=== PATIENT | female | born 1975 | race Hispanic/Latino ===

== ENCOUNTER 2022-07-23 18:24 | Emergency (ER) | payer SELFPAY ==
--- OUTSIDE RECORDS SUMMARY | 2022-07-23 18:29 | XMS REPORT | Continuity of Care Document ---
:1975 Author Organization [facility] t Address [address] [place] [address] Care Team Providers Name Role Phone Unavailable Unavailable Unavailable Problems This patient has no known problems. Allergies, Adverse Reactions, Alerts This patient has no known allergies or adverse reactions. Medications This patient has no known medications. Procedures This patient has no known procedures. Encounters Start End Encounter Admission Attending Care Care Encounter Source Date/Time Date/Time Type Type Clinicians Facility Department ID 2022-07-22 2022-07-22 Outpatient [facility] [id number] Zeb 08:48:28 08:48:28 [id number] F Christiano 2022-04-30 2022-04-30 Outpatient [facility] [id number] Zeb 11:07:12 11:07:12 [id number] F Christiano Results This patient has no known results.
--- NOTE | 2022-07-23 19:19 | EDPHYS ---
Physician Documentation [facility] Name: Thelma Zaldivar Age: 46 yrs Sex: Female : 1975 Arrival Date: 07/23/2022 Time: 18:26 Bed 18 Private MD: ED Physician Vahid Ley HPI: 07/23 19:20 This 46 yrs old Female presents to ER via Ambulatory with complaints of Arm snw Pain - right. 19:20 The patient or guardian complains of decreased range of motion, pain. The complaints snw affect the anterior aspect of right shoulder and posterior aspect of right shoulder. Onset: The symptoms/episode began/occurred acutely, 3 month(s) ago, and became persistent. Associated signs and symptoms: The patient has no apparent associated signs or symptoms. Severity of symptoms: At their worst the symptoms were moderate. It is unknown whether or not the patient has had similar symptoms in the past. 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 - Social history:: Smoking status: Patient denies any tobacco usage or history of. ROS: 19:21 Constitutional: Negative for fever, chills, and weight loss, Eyes: Negative for injury, snw pain, redness, and discharge, ENT: Negative for injury, pain, and discharge, Neck: Negative for injury, pain, and swelling, Cardiovascular: Negative for chest pain, palpitations, and edema, Respiratory: Negative for shortness of breath, cough, wheezing, and pleuritic chest pain, Abdomen/GI: Negative for abdominal pain, nausea, vomiting, diarrhea, and constipation, Back: Negative for injury and pain, : Negative for injury, bleeding, discharge, and swelling, Skin: Negative for injury, rash, and discoloration, Neuro: Negative for headache, weakness, numbness, tingling, and seizure, Psych: Negative for depression, anxiety, suicide ideation, homicidal ideation, and hallucinations. 19:21 MS/extremity: Positive for injury or acute deformity, decreased range of motion, pain, of the posterior aspect of right shoulder and anterior aspect of right shoulder. Exam: 19:21 Constitutional: This is a well developed, well nourished patient who is awake, alert, snw and in no acute distress. Head/Face: Normocephalic, atraumatic. 19:21 Chest/axilla: Normal chest wall appearance and motion. Nontender with no deformity. No lesions are appreciated. Cardiovascular: Regular rate and rhythm with a normal S1 and S2. No gallops, murmurs, or rubs. Normal PMI, no JVD. No pulse deficits. Respiratory: Lungs have equal breath sounds bilaterally, clear to auscultation and percussion. No rales, rhonchi or wheezes noted. No increased work of breathing, no retractions or nasal flaring. Abdomen/GI: Soft, non-tender, with normal bowel sounds. No distension or tympany. No guarding or rebound. No evidence of tenderness throughout. Back: No spinal tenderness. No costovertebral tenderness. Full range of motion. Skin: Warm, dry with normal turgor. Normal color with no rashes, no lesions, and no evidence of cellulitis. Neuro: Awake and alert, GCS 15, oriented to person, place, time, and situation. Cranial nerves II-XII grossly intact. Motor strength 5/5 in all extremities. Sensory grossly intact. Cerebellar exam normal. Normal gait. Psych: Awake, alert, with orientation to person, place and time. Behavior, mood, and affect are within normal limits. 19:21 Neck: External neck: tenderness, that is moderate, right lateral neck. 19:21 Musculoskeletal/extremity: Extremities: grossly normal except: noted in the posterior aspect of right shoulder and anterior aspect of right shoulder: decreased ROM, tenderness. Vital Signs: 18:42 BP 119 / 56; Pulse 84; Resp 18; Temp 98.4; Pulse Ox 99% on R/A; Weight 73.03 kg (R); mb9 Height 5 ft. 2 in. (157.48 cm); Pain 8/10; 19:36 BP 120 / 44; Pulse 78; Resp 19; Pulse Ox 99% on R/A; aa9 18:42 Body Mass Index 29.45 (73.03 kg, 157.48 cm) mb9 MDM: 18:58 Patient medically screened. snw 19:19 Data reviewed: vital signs, nurses notes. I considered the following discharge snw prescriptions or medication management in the emergency department pt has high dose ibuprofen, prednisone, and flexeril with her and will continue to take these.. Historians other than the Patient: Daughter/Son: Son. Counseling: I had a detailed discussion with the patient and/or guardian regarding: the historical points, exam findings, and any diagnostic results supporting the discharge/admit diagnosis, the need for outpatient follow up, for definitive care, to return to the emergency department if symptoms worsen or persist or if there are any questions or concerns that arise at home. Special discussion: Based on the history and exam findings, there is no indication for further emergent testing or inpatient evaluation. I discussed with the patient/guardian the need to see the orthopedic surgeon for further evaluation of the symptoms. I discussed with the patient/guardian the need to see the primary care provider for further evaluation of the symptoms. 07/23 19:18 Order name: Sling; Complete Time: 19:35 snw Administered Medications: 19:35 Drug: HYDROcodone-acetaminophen 5 mg-325 mg 1 tabs Route: PO; aa9 19:36 Follow up: Response: No adverse reaction aa9 Disposition: 07/24 07:45 Co-signature as Attending Physician, Vahid Ley MD I reviewed the patient's care rt provided by the Advanced Practice Provider and agree with the diagnosis and treatment plan. Disposition Summary: 07/23/22 19:19 Discharge Ordered Location: Home snw Condition: Stable snw Diagnosis - Pain in right shoulder snw Followup: snw - With: Emergency Department - When: As needed - Reason: Worsening of condition Followup: snw - With: Private Physician - When: 5 - 6 days - Reason: Recheck today's complaints, Continuance of care, Re-evaluation by your physician Discharge Instructions: - Discharge Summary Sheet snw - Joint Pain snw - Shoulder Pain snw - How to Use Cold Therapy, [id number] snw - Shoulder Range of Motion Exercises snw - How to Use a Sling snw Forms: - Medication Reconciliation Form snw - Thank You Letter snw - Antibiotic Education snw - Prescription Opioid Use snw Signatures: Jeannie Curry FNP-C SUPERVISOR PROP MAKING-Csnw Karolina Thayer RN RN aa9 Leta Garcia, ARCADIO RN mb9 Vahid Ley MD MD rt
--- NOTE | 2022-07-23 19:19 | ER ---
Nurse's Notes [facility] Name: Thelma Zaldivar Age: 46 yrs Sex: Female : 1975 Arrival Date: 07/23/2022 Time: 18:26 Bed 18 Private MD: Diagnosis: Pain in right shoulder Presentation: 07/23 18:42 Chief complaint: Patient states: "I started having right arm pain 3 months ago after mb9 picking up something heavy". Coronavirus screen: Vaccine status: Patient reports being unvaccinated. Ebola Screen: No symptoms or risks identified at this time. Initial Sepsis Screen: Does the patient meet any 2 criteria? No. Patient's initial sepsis screen is negative. Does the patient have a suspected source of infection? No. Patient's initial sepsis screen is negative. Risk Assessment: Do you want to hurt yourself or someone else? Patient reports no desire to harm self or others. Onset of symptoms was April 18, 2022. 18:42 Method Of Arrival: Ambulatory mb9 18:42 Acuity: CHI 4 mb9 Triage Assessment: 18:48 General: Appears in no apparent distress. comfortable, Behavior is calm, cooperative, mb9 appropriate for age. Pain: Complains of pain in right arm Pain radiates to right shoulder. Pain: Pain currently is 8 out of 10 on a pain scale. Quality of pain is described as sharp, shooting, Aggravated by increased activity. Neuro: Guerin Agitation-Sedation Scale (RASS): 0 - Alert and Calm Level of Consciousness is awake, alert, obeys commands. Cardiovascular: Capillary refill < 3 seconds is brisk Patient's skin is warm and dry. Respiratory: Airway is patent Respiratory effort is even, unlabored, Respiratory pattern is regular, symmetrical. Derm: Skin is pink, warm \\T\\ dry. Musculoskeletal: Range of motion: intact in all extremities, Reports pain in right arm since 3 months ago. 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 - Social history:: Smoking status: Patient denies any tobacco usage or history of. Screenin:50 [facility] ED Fall Risk Assessment (Adult) History of falling in the last 3 months, mb9 including since admission No falls in past 3 months (0 pts) Confusion or Disorientation No (0 pts) Intoxicated or Sedated No (0 pts) Impaired Gait No (0 pts) Mobility Assist Device Used No (0 pt) Altered Elimination No (0 pt) Score/Fall Risk Level 0 - 2 = Low Risk Oriented to surroundings, Maintained a safe environment. Abuse screen: Denies threats or abuse. Nutritional screening: No deficits noted. Tuberculosis screening: No symptoms or risk factors identified. Assessment: 19:35 General: Appears in no apparent distress. comfortable, Behavior is calm, cooperative, aa9 appropriate for age. Pain: Complains of pain in right arm Pain currently is 7 out of 10 on a pain scale. Aggravated by increased activity, weight bearing. Neuro: Level of Consciousness is awake, alert, obeys commands, Oriented to person, place, time, situation. Cardiovascular: Patient's skin is warm and dry. Respiratory: Airway is patent Respiratory effort is even, unlabored. Derm: Skin is intact, is healthy with good turgor. Musculoskeletal: Range of motion: intact in all extremities. Vital Signs: 18:42 BP 119 / 56; Pulse 84; Resp 18; Temp 98.4; Pulse Ox 99% on R/A; Weight 73.03 kg (R); mb9 Height 5 ft. 2 in. (157.48 cm); Pain 8/10; 19:36 BP 120 / 44; Pulse 78; Resp 19; Pulse Ox 99% on R/A; aa9 18:42 Body Mass Index 29.45 (73.03 kg, 157.48 cm) mb9 ED Course: 18:26 Patient arrived in ED. am2 18:38 Jeannie Curry [facility]NP-C [facility] snw 18:38 Vahid Ley MD is Attending Physician. snw 18:45 Triage completed. mb9 18:45 Arm band placed on. mb9 18:49 Gunjan Leyva, ARCADIO is Primary Nurse. ll1 18:49 Patient placed in an exam room, on a stretcher. ll1 18:49 Bed in low position. Call light in reach. Side rails up X 1. Client placed on mb9 continuous cardiac and pulse oximetry monitoring. NIBP monitoring applied. supervisor wet room on. Door closed. Noise minimized. Warm blanket given. 19:01 No provider procedures requiring assistance completed. mb9 Administered Medications: 19:35 Drug: HYDROcodone-acetaminophen 5 mg-325 mg 1 tabs Route: PO; aa9 19:36 Follow up: Response: No adverse reaction aa9 Medication: 19:01 VIS not applicable for this client. mb9 Outcome: 19:19 Discharge ordered by MD. [place] 19:36 Patient left the ED. aa9 Signatures: Jeannie Curry, STORE COORDINATOR-C STORE COORDINATOR-Csnw Annmarie Dsouza am2 Gunjan Leyva RN RN ll1 Karolina Thayer RN RN aa9 Leta Garcia, RN RN mb9
[2022-07-23] MEDS ORDERED: HYDROCODONE/APAP 5/325 MG TAB ONE (19:28)
[2022-07-23 20:13] VITALS: TEMP 98.4; O2SAT 99
[2022-07-23 20:16] VITALS: BP 120/44
== END 2022-07-23 19:36 | disposition home or self-care (01) ==
LOC: ER 18:24
DX: M25.511 Pain in right shoulder (principal)
CPT/HCPCS: 99284